=== PATIENT | male | born 1995 | race Asian ===

== ENCOUNTER 2018-12-23 09:15 | Emergency (ER) | payer OTHER ==
--- NOTE | 2018-12-23 10:14 | ER Document Report ---
ED Eye Complaint - General Chief Complaint: Redness of Eye Stated Complaint: EYE ISSUES Time Seen by Provider: 12/23/18 09:54 Primary Care Provider: DENNIS CALVO MD [ACTIVE STAFF] - Follow up as needed Mode of Arrival: Ambulatory Information source: Patient Notes: 23-year-old male presents to ED for complaint of itchy irritated eyes. They are not red at all. He states he does have itching and it wakes up matted. He does have a cold going on. The pollen in the air at this time is pretty extensive. Patient has been instructed to use allergy eyedrops to reduce the itching in his eyes. Patient is alert oriented respirations regular and unlabored speaking in full sentences walks with a even steady gait. TRAVEL OUTSIDE OF THE [place] IN LAST 30 DAYS: No - HPI Onset: Just prior to arrival Eye location: Bilateral Injury: No Occurred at: Home Quality of pain: Other - Itchy Severity: None Pain Level: Denies Associated symptoms: Itching, Matting - States they are matted in the morning they are not matted at this time. denies: Pain, Photophobia, Redness, Eyelid swelling, Orbital swelling - Related Data Allergies/Adverse Reactions: No Known Allergies Allergy (Verified 12/23/18 09:16) Past Medical History - General Information source: Patient - Social History Smoking Status: Never Smoker Frequency of alcohol use: Occasional Drug Abuse: None Occupation: [employer] Lives with: Friend Family History: Reviewed & Not Pertinent Patient has suicidal ideation: No Patient has homicidal ideation: No - Past Medical History Cardiac Medical History: Reports: None Pulmonary Medical History: Reports: None EENT Medical History: Reports: None Neurological Medical History: Reports: None Endocrine Medical History: Reports: None Review of Systems - Review of Systems Constitutional: No symptoms reported EENT: Eye discharge, Nose discharge, Sinus pressure, Sinus discharge Cardiovascular: No symptoms reported Respiratory: No symptoms reported Gastrointestinal: No symptoms reported Genitourinary: No symptoms reported Male Genitourinary: No symptoms reported Musculoskeletal: No symptoms reported Skin: No symptoms reported Hematologic/Lymphatic: No symptoms reported Neurological/Psychological: No symptoms reported Physical Exam - Vital signs Vitals: Temp Pulse Resp BP Pulse Ox 98.6 F 57 L 14 143/60 H 99 12/23/18 09:22 12/23/18 09:22 12/23/18 09:22 12/23/18 09:22 12/23/18 09:22 Interpretation: Normal - General General appearance: Appears well, Alert - HEENT Head: Normocephalic, Atraumatic Eyes: Normal Conjunctiva: No: Injected, Purulent discharge Cornea: Normal Extraocular movements intact: Yes Eyelashes: Normal Pupils: PERRL Visual almanza normal: Yes Ears: Normal External canal: Normal Tympanic membrane: Normal Sinus: Normal Nasal: Swelling, Clear rhinorrhea Mouth/Lips: Normal Mucous membranes: Normal Pharynx: Normal Neck: Normal - Respiratory Respiratory status: No respiratory distress Chest status: Nontender Breath sounds: Normal Chest palpation: Normal - Cardiovascular Rhythm: Regular Heart sounds: Normal auscultation Murmur: No - Abdominal Inspection: Normal Distension: No distension Bowel sounds: Normal Tenderness: Nontender Organomegaly: No organomegaly - Back Back: Normal, Nontender - Extremities General upper extremity: Normal inspection, Nontender, Normal color, Normal ROM, Normal temperature General lower extremity: Normal inspection, Nontender, Normal color, Normal ROM, Normal temperature, Normal weight bearing. No: Delfina's sign - Neurological Neuro grossly intact: Yes Cognition: Normal Orientation: AAOx4 [place] Coma Scale Eye Opening: Spontaneous Lory Coma Scale Verbal: Oriented Lory Coma Scale Motor: Obeys Commands Lory Coma Scale Total: 15 Speech: Normal Motor strength normal: LUE, RUE, LLE, RLE Sensory: Normal - Psychological Associated symptoms: Normal affect, Normal mood - Skin Skin Temperature: Warm Skin Moisture: Dry Skin Color: Normal Course - Re-evaluation Re-evalutation: 12/23/18 10:15 Patient instructed to take [id number] allergy medicine for his eye itching and for his allergy symptoms. He is does not have pinkeye at this time. He is instructed to follow-up with a primary or punch press operator helper if any continued symptoms. Patient was discharged home. He might recheck it because he did not get his blood pressure is a history - Vital Signs Vital signs: Temp Pulse Resp BP Pulse Ox 97.8 F 50 L 18 117/60 99 12/23/18 10:24 12/23/18 10:24 12/23/18 10:24 12/23/18 10:24 12/23/18 10:24 Discharge - Discharge Clinical Impression: Seasonal allergies Condition: Stable Disposition: HOME, SELF-CARE Instructions: Family Physicians / Practices Additional Instructions: You were seen today for seasonal allergies. You do not have pinkeye at this time. You have runny nose and runny itchy eyes. Use of [id number] cough and cold and allergy medicine as well as some allergy eyedrops for your symptoms. If your symptoms continue follow-up with an call specialist. If you develop redness to the white part of your eye return to the emergency room or your primary care doctor. FOLLOW-UP CARE: If you have been referred to a physician for follow-up care, call the physicians office for an appointment as you were instructed or within the next two days. If you experience worsening or a significant change in your symptoms, notify the physician immediately or return to the Emergency Department at any time for re-evaluation. Forms: Elevated Blood Pressure, Return to Work Referrals: DENNIS CALVO MD [ACTIVE STAFF] - Follow up as needed
[2018-12-23 10:26] VITALS: BP 117/60
== END 2018-12-23 10:25 | disposition home or self-care (01) ==
LOC: ER 09:15
DX: T78.49XA Other allergy, initial encounter (principal); H57.13 Ocular pain, bilateral
CPT/HCPCS: 99282

== ENCOUNTER 2020-05-20 13:57 | Emergency (ER) | payer SELFPAY ==
[2020-05-20 14:08] VITALS: BP 132/58
--- NOTE | 2020-05-20 14:20 | ER Document Report ---
ED Medical Screen (RME) - General Chief Complaint: Psych Problem Stated Complaint: PSYCH Time Seen by Provider: 05/20/20 14:10 Mode of Arrival: Ambulatory Information source: Patient Notes: 24-year-old male presented to ED for complaint of thoughts of suicide. He states he constantly have thoughts of suicide running to his head. He states he is not the type of person that would ever act on these. He states he has not made any plans to commit suicide but his boss told him he had to come to the hospital and get checked out. He states he has never attempted suicide. He states he has not been to a doctor in a long time. He does work in [employer]. He lives with friends. He states he does not smoke he does drink weekly and he does not use any illicit drugs. He states he does not have any past medical history. I have greeted and performed a rapid initial assessment of this patient. A comprehensive ED assessment and evaluation of the patient, analysis of test results and completion of medical decision making process will be conducted by an additional ED providers. TRAVEL OUTSIDE OF THE [place] IN LAST 30 DAYS: No - Related Data Allergies/Adverse Reactions: No Known Allergies Allergy (Verified 12/23/18 09:16) Past Medical History - Social History Frequency of alcohol use: Occasional Drug Abuse: None Renal/ Medical History: Denies: Hx Peritoneal Dialysis Physical Exam - Vital signs Vitals: Temp Pulse Resp BP Pulse Ox 98.9 F 57 L 18 132/58 H 97 05/20/20 14:08 05/20/20 14:08 05/20/20 14:08 05/20/20 14:08 05/20/20 14:08 Course - Vital Signs Vital signs: Temp Pulse Resp BP Pulse Ox 98.9 F 57 L 18 132/58 H 97 05/20/20 14:08 05/20/20 14:08 05/20/20 14:08 05/20/20 14:08 05/20/20 14:08
--- NOTE | 2020-05-20 14:37 | ER Document Report ---
ED General - General Chief Complaint: Psych Problem Stated Complaint: PSYCH Time Seen by Provider: 05/20/20 14:10 Mode of Arrival: Ambulatory Notes: Patient presents with worsening depressed mood suicidal ideation and loss of hope. Is been going on for quite a while but is worse lately. No specific plan but feels motivated to kill himself. He was suggested coming by a friend that is here of his own accord. TRAVEL OUTSIDE OF THE [place] IN LAST 30 DAYS: No - Related Data Allergies/Adverse Reactions: No Known Allergies Allergy (Verified 12/23/18 09:16) Past Medical History - General Information source: Patient - Social History Smoking Status: Unknown if Ever Smoked Frequency of alcohol use: Occasional Drug Abuse: None Family History: Reviewed & Not Pertinent Renal/ Medical History: Denies: Hx Peritoneal Dialysis Review of Systems - Review of Systems Notes: REVIEW OF SYSTEMS GEN: Denies fever, chills, weight loss ENT: Denies sore throat, nasal discharge, ear pain EYES: Denies blurry vision, eye pain, discharge CV: Denies chest pain, palpitations, edema RESP: Denies cough, shortness of breath, wheezing GI: Denies abdominal pain, nausea, vomiting, diarrhea MSK: Denies joint pain/swelling, edema, SKIN: Denies rash, skin lesions LYMPH: Denies swollen glands/lymph nodes NEURO: Denies headache, focal weakness or numbness, dizziness PSYCH: D pressed mood suicidal ideation PHYSICAL EXAMINATION General: No acute distress, well-nourished Head: Atraumatic, normocephalic ENT: Mouth normal, oropharynx moist, no exudates or tonsillar enlargement Eyes: Conjunctiva normal, pupils equal, lids normal Neck: No JVD, supple, no guarding CVS: Normal rate, regular rhythm, no murmurs Resp: No resp distress, equal and normal breath sounds bilaterally GI: Nondistended, soft, no tenderness to palpation, no rebound or guarding Ext: No deformities, no edema, normal range of motion in upper and lower ext Back: No CVA or midline TTP Skin: No rash, warm Lymphatic: No lymphadeopathy noted Neuro: Awake, alert. Face symmetric. GCS 15. Physical Exam - Vital signs Vitals: Temp Pulse Resp BP Pulse Ox 98.9 F 57 L 18 132/58 H 97 05/20/20 14:08 05/20/20 14:08 05/20/20 14:08 05/20/20 14:08 05/20/20 14:08 Course - Re-evaluation Re-evalutation: 05/20/20 15:13 Depressed mood suicidal edition Medically cleared Voluntary Defer to behavioral health for IVC and medication recommendations. IVC protocol initiated - Vital Signs Vital signs: Temp Pulse Resp BP Pulse Ox 98.9 F 57 L 18 132/58 H 97 05/20/20 14:08 05/20/20 14:08 05/20/20 14:08 05/20/20 14:08 05/20/20 14:08 - Laboratory Result Diagrams: 05/20/20 14:39 05/20/20 14:39 Discharge - Discharge Clinical Impression: Suicidal ideation Condition: Good Disposition: PSYCH HOSP/UNIT
[2020-05-20 14:58] LABS: ABSOLUTE EOSINOPHILS # (AUTO) 0.1 10^3/uL (0.0-0.6); ABSOLUTE LYMPHOCYTES (AUTO) 1.4 10^3/uL (0.5-4.7); ABSOLUTE MONOCYTES (AUTO) 0.6 10^3/uL (0.1-1.4); ABSOLUTE NEUT (AUTO) 6.4 10^3/uL (1.7-8.2); BASOPHILS % (AUTO) 0.5 % (0-2); EOSINOPHILS % (AUTO) 0.9 % (0-6); HEMOGLOBIN 15.8 g/dL (13.5-17.0); LYMPHOCYTES % (AUTO) 16.5 % (13-45); MEAN CORPUSCULAR HEMOGLOBIN 30.8 pg (27.0-33.4); MEAN CORPUSCULAR HGB CONC 34.2 g/dL (32.0-36.0); MEAN CORPUSCULAR VOLUME 90 fl (80-97); MONOCYTES % (AUTO) 6.9 % (3-13); PLATELET COUNT 229 10^3/uL (150-450); RED BLOOD COUNT 5.13 10^6/uL (4.35-5.55); RED CELL DISTRIBUTION WIDTH 13.4 % (11.5-14.0); SEGMENTED NEUTROPHILS % (AUTO) 75.2 % (42-78); TOTAL CELLS COUNTED % (AUTO) 100 %; WHITE BLOOD COUNT 8.5 10^3/uL (4.0-10.5)
[2020-05-20 15:23] LABS: ALBUMIN 4.6 g/dL (3.5-5.0); ALKALINE PHOSPHATASE 63 U/L (38-126); ANION GAP 6 (5-19); ASPARTATE AMINO TRANSFERASE 27 U/L (17-59); BILIRUBIN,DIRECT 0.2 mg/dL (0.0-0.4); BILIRUBIN,TOTAL 0.7 mg/dL (0.2-1.3); BLOOD UREA NITROGEN 18 mg/dL (7-20); CALCIUM 9.5 mg/dL (8.4-10.2); CARBON DIOXIDE 30 mmol/L (22-30); CHLORIDE 105 mmol/L (98-107); GLUCOSE 97 mg/dL (75-110); POTASSIUM 4.5 mmol/L (3.6-5.0); TOTAL PROTEIN 7.3 g/dL (6.3-8.2)
[2020-05-20 15:25] LABS: ACETAMINOPHEN < 10 ug/mL (10-30); ALCOHOL < 10 mg/dL (NONE DETECTED); SALICYLATE < 1.0 mg/dL (2.0-20.0)
[2020-05-20 15:37] LABS: APPEARANCE,URINE CLEAR; BILIRUBIN,URINE NEGATIVE (NEGATIVE); COLOR,URINE YELLOW; GLUCOSE, URINE NEGATIVE (NEGATIVE); KETONES,URINE NEGATIVE (NEGATIVE); LEUKOCYTE ESTERASE,URINE NEGATIVE (NEGATIVE); NITRITE,URINE NEGATIVE (NEGATIVE); PROTEIN,URINE NEGATIVE (NEGATIVE); URINE SPECIFIC GRAVITY 1.021
[2020-05-20 16:01] LABS: URINE AMPHETAMINES SCREEN NEGATIVE; URINE BARBITURATES SCREEN NEGATIVE; URINE BENZODIAZEPINES SCREEN NEGATIVE; URINE COCAINE SCREEN NEGATIVE; URINE MARIJUANA (THC) SCREEN NEGATIVE; URINE METHADONE SCREEN NEGATIVE; URINE PHENCYCLIDINE SCREEN NEGATIVE
--- NOTE | 2020-05-20 17:32 | ER Document Report ---
Doctor's Note Notes: 05/20/20 17:29 Patient was signed out to me. I personally evaluated the patient. He is alert and oriented. He is in no acute distress. He is denying any suicidal or homicidal ideations. I discussed with behavioral health as well who feel that he is stable to go home as he has significant outpatient follow-up. Patient is very agreeable to this. I believe he is safe to be discharged.
--- NOTE | 2020-05-21 16:50 | EKG REPORT ---
SEVERITY:- NORMAL ECG - SINUS BRADYCARDIA : Confirmed by: Edwin Lora MD 21-May-2020 16:49:23
== END 2020-05-20 18:15 | disposition home or self-care (01) ==
LOC: ER 13:57
DX: R45.851 Suicidal ideations (principal)
CPT/HCPCS: 36415; 80053; 80307; 81001; 85025; 93005; 93010; 99285